=== PATIENT | male | born 1980 | race Two or more races ===

== ENCOUNTER 2021-10-08 08:41 | Emergency (ER) | payer BC | END 2021-10-08 09:50 | disposition home or self-care (01) | LOC: JP.ED 08:41 | DX: B00.1 Herpesviral vesicular dermatitis (principal); I10 Essential (primary) hypertension; E11.9 Type 2 diabetes mellitus without complications; Z79.899 Other long term (current) drug therapy; Z79.84 Long term (current) use of oral hypoglycemic drugs; Z72.0 Tobacco use | CPT/HCPCS: 99281; 99282 ==